=== PATIENT | female | born 1975 | race Caucasian/White ===

== ENCOUNTER 2022-08-19 21:43 | Emergency (ER) | payer MEDICAID ==
[~2022-08-19] VITALS: Ht 154.9 cm; Wt 74.8 kg
[2022-08-19 21:48] VITALS: BP_SYST 123
[2022-08-19] MEDS ORDERED: IBUPROFEN 600 MG TABLET PO ONE (22:15)
[2022-08-19] MEDS ORDERED: IBUP-1969 PO (22:47)
[2022-08-19 22:50] VITALS: BP_SYST 123
== END 2022-08-19 22:50 | disposition home or self-care (01) ==
LOC: SED 21:43
DX: S90.32XA Contusion of left foot, initial encounter (principal); Z79.899 Other long term (current) drug therapy; W22.8XXA Striking against or struck by other objects, initial encounter; Y93.89 Activity, other specified; Y92.89 Other specified places as the place of occurrence of the external cause; Y99.8 Other external cause status
CPT/HCPCS: 99283